=== PATIENT | female | born 1970 | race African-American/Black ===

== ENCOUNTER 2016-05-29 22:32 | Emergency (ER) | payer MEDICAID ==
[~2016-05-29] VITALS: Ht 162.6 cm; Wt 79.4 kg
[~2016-05-29 22:32] MED LIST: ALBUTEROL SULF8.5 GM INH; ATIVAN1 MG ORAL; AZITHROMYCIN250 MG ORAL; BENTYL10 MG ORAL; COLACE100 MG ORAL; GAS-X80 MG PO; KEPPRA500 MG ORAL; LIBRIUM10 MG ORAL; LORAZEPAM1 MG ORAL; NKM; NORCO 5-325 TA1 EACH ORAL; NORCO 5-325 TA1 EACH PO; ONDANSETRON ODT4 MG ORAL; ZOFRAN ODT4 MG ORAL; ZOFRAN4 M1 ORAL; seizure medication PO
[2016-05-29] MEDS ORDERED: Norco 10mg/325mg tab ORAL ONE (23:00)
--- NOTE | 2016-05-29 23:18 | Emergency Room Report ---
History of Present Illness General Chief Complaint: Lower Extremity Injury Source: Patient Present Illness HPI Patient presents with complaints of pain to her right foot Patient's of her foot against a wall earlier this morning Now the pain is 8/10 ongoing since then Pain is worse with ambulation More so to the lateral palmar aspect distally Denies any ankle pain denies any knee pain denies any other fall or trauma Allergies: Coded Allergies: ASPIRIN (Verified Allergy, Mild, HIVES, 06/18/10) Patient History Past Medical History: see triage record Pertinent Family History: none Now: No Reviewed Nursing Documentation: PMH: Agreed, PSxH: Agreed Nursing Documentation-PMH Past Medical History: No History, Except For Hx Cardiac Problems: Yes - VSD Hx Hypertension: No Hx Pacemaker: No Hx Asthma: No Hx COPD: No Hx Diabetes: No Hx Cancer: No Hx Gastrointestinal Problems: Yes - Ventral hernia Hx Neurological Problems: Yes Hx Cerebrovascular Accident: No Hx Seizures: Yes - last attack was 1 month ago Review of Systems All Other Systems: negative except mentioned in HPI Physical Exam Vital Signs Date Time Temp Pulse Resp B/P Pulse Ox O2 Delivery O2 Flow Rate FiO2 05/29/16 22:36 97.7 93 19 119/77 98 Room Air Sp02 EP Interpretation: reviewed, normal General Appearance: well appearing, no apparent distress Head: normocephalic, atraumatic Eyes: bilateral eye EOMI, bilateral eye PERRL ENT: hearing grossly normal, normal pharynx, TMs + canals normal, uvula midline Musculoskeletal: swelling - And erythema to the palmar aspect of the distal lateral tank tender to palpation, neurovascularly intact, other - Patient has tenderness on palpation of the distal metacarpal region on the palmar aspect no obvious open cuts or wounds Neurologic: oriented x3, responsive, studio artist III-XII nml as tested, sensory intact Psychiatric: mood/affect normal Skin: warm/dry, palpation normal, other - As noted above Lymphatic: normal inspection, no adenopathy Medical Decision Making Diagnostic Impression: Primary Impression: Injury of lower extremity Additional Impression: Foot contusion ER Course Patient's imaging study does not show any obvious acute pathology, there does appear to be some abnormality involving the distal metacarpal Further outpatient workup is warranted This is a preliminary x-ray reading Final reading will be done by radiology in the morning patient was notified about this and followup if warranted Here the patient was provided with a postop shoe for improved sensation along with a cane , Other X-Ray Diagnostic Results Other X-Ray Diagnostic Results : EP Interpretation: Yes Findings: no fractures, no dislocation, no soft tissue swelling, other - No obvious acute fracture distal metacarpal anomaly noted, Number of Views: 3 - right foot Last Vital Signs Date Time Temp Pulse Resp B/P Pulse Ox O2 Delivery O2 Flow Rate FiO2 05/29/16 22:36 97.7 93 19 119/77 98 Room Air Status: improved Disposition: HOME, SELF-CARE Condition: Improved Scripts Hydrocodone Bit/Acetaminophen 5-325* (NORCO 5-325*) 1 Each Tablet 1 TAB ORAL Q12HR Y for For Pain, #10 TAB 0 Refills Prov: PRESLEY MATHIS D.O. 05/29/16 Additional Instructions: Patient is provided with the discharge instructions notified to follow up with primary doctor in the next 2-3 days otherwise return to the er with any worsening symptoms. PRESLEY MATHIS D.O. May 29, 2016 23:18
[2016-05-29] MEDS ORDERED: NORCO 5-325 TA1 EACH ORAL (23:44)
[2016-05-30 00:03] VITALS: BP 105/72
[2016-05-30 00:04] VITALS: BP 105/72
--- NOTE | 2016-05-30 10:18 | Diagnostic Imaging Report ---
Indication: PAIN Technique: 3 views right foot Comparison: none Findings: No acute fractures. No dislocations. The joint spaces are preserved Impression: Negative
== END 2016-05-30 00:07 | disposition home or self-care (01) ==
LOC: EMR 23:05
DX: S90.31XA Contusion of right foot, initial encounter (principal); Z88.6 Allergy status to analgesic agent; W22.09XA Striking against other stationary object, initial encounter; Y92.9 Unspecified place or not applicable; Y99.8 Other external cause status
CPT/HCPCS: 99283

== ENCOUNTER 2019-02-17 19:19 | Emergency (ER) | payer MEDICAID ==
[~2019-02-17] VITALS: Ht 170.2 cm; Wt 83.0 kg
[2019-02-17 19:30] VITALS: BP 119/81
--- NOTE | 2019-02-17 19:30 | NUR ---
ED Nurse Note: Patient in obgyn complaining of pain to the right elbow and reduced range of movement. Swelling also noted to the hand which patient states has swollen during the day. Patient states she had banged her elbow and since then she has felty increasing pain and since then reduced movement of the right elbow. Patient tearful. Xray requested.
[2019-02-17] MEDS ORDERED: Ketorolac 30mg Inj IM ONE (19:45)
--- NOTE | 2019-02-17 20:24 | Emergency Room Report ---
History of Present Illness General Chief Complaint: Upper Extremity Injury Source: Patient Present Illness HPI 48-year-old female with no symptom past medical history here complaining of pain and swelling right elbow after hitting her right elbow to a metal pole yesterday. Patient rating pain 10 out of 10, reports increased pain with with occasional movement of the right elbow. Denies pain radiation, tingling and numbness. Has not taken medication for pain. Denies other injuries, chest pain , shortness of breath, palpitation, and other associated symptoms. Allergies: Coded Allergies: ASPIRIN (Verified Allergy, Mild, HIVES, 06/18/10) Patient History Past Medical History: see triage record Past Surgical History: unable to obtain Pertinent Family History: none Now: No Immunizations: UTD Reviewed Nursing Documentation: PMH: Agreed; PSxH: Agreed Nursing Documentation-PMH Hx Cardiac Problems: Yes - VSD Hx Hypertension: No Hx Pacemaker: No Hx Asthma: No Hx COPD: No Hx Diabetes: No Hx Cancer: No Hx Gastrointestinal Problems: Yes - Ventral hernia Hx Neurological Problems: Yes Hx Cerebrovascular Accident: No Hx Seizures: Yes - last attack was 1 month ago Review of Systems All Other Systems: negative except mentioned in HPI Physical Exam Vital Signs Date Time Temp Pulse Resp B/P (MAP) Pulse Ox O2 Delivery O2 Flow Rate FiO2 02/17/19 19:30 98.2 83 20 119/81 (94) 99 Room Air Sp02 EP Interpretation: reviewed, normal General Appearance: no apparent distress, alert, GCS 15, non-toxic Head: normocephalic, atraumatic Eyes: bilateral eye normal inspection, bilateral eye PERRL ENT: hearing grossly normal, normal pharynx, no angioedema, normal voice Neck: full range of motion, supple/symm/no masses Respiratory: chest non-tender, lungs clear, normal breath sounds, no rhonchi, no wheezing, speaking full sentences Cardiovascular #1: regular rate, rhythm, no edema, no murmur Cardiovascular #2: 2+ radial (R), 2+ radial (L) Gastrointestinal: normal bowel sounds, non tender, soft, non-distended, no guarding, no rebound Genitourinary: no CVA tenderness Neurologic: alert, oriented x3, responsive, motor strength/tone normal, sensory intact, speech normal Psychiatric: judgement/insight normal, memory normal, mood/affect normal, no suicidal/homicidal ideation Skin: no rash Lymphatic: no adenopathy Medical Decision Making PA Attestation All diagnoses and treatment plans were reviewed and discussed with my supervising physician Dr. Quesada Diagnostic Impression: Primary Impression: Elbow contusion ER Course 48-year-old female with no symptom past medical history here complaining of pain and swelling right elbow after hitting her right elbow to a metal pole yesterday. Patient rating pain 10 out of 10, reports increased pain with with occasional movement of the right elbow. Denies pain radiation, tingling and numbness. Has not taken medication for pain. Denies other injuries, chest pain , shortness of breath, palpitation, and other associated symptoms. Ddx considered but are not limited to: Elbow sprain versus strain versus contusion versus fracture Vital signs: are WNL, pt. is afebrile H&PE are most consistent with: Right elbow contusion ORDERS: Elbow x-ray, ibuprofen, lidocaine patch ED INTERVENTIONS: Toradol DISCHARGE: At this time pt. is stable for d/c to home. Will provide printed patient care instructions, and any necessary prescriptions. Care plan and follow up instructions have been discussed with the patient prior to discharge. Patient to follow-up with her primary care provider and possible referral to physical therapy . Return to emergency room if worsening symptoms. Other X-Ray Diagnostic Results Other X-Ray Diagnostic Results : X-Ray ordered: right elbow # of Views/Limited Vs Complete: 3 View Indication: Pain EP Interpretation: Yes PA Xray: Interpretation reviewed, by supervising MD, and agrees with findings. Interpretation: no dislocation, no soft tissue swelling, no fractures Impression: No acute disease Electronically Signed by: Case Ramsey PA-C Last Vital Signs Date Time Temp Pulse Resp B/P (MAP) Pulse Ox O2 Delivery O2 Flow Rate FiO2 02/17/19 19:30 98.2 83 20 119/81 (94) 99 Room Air Disposition: HOME, SELF-CARE Condition: Stable Scripts Lidocaine Patch* (Lidoderm Patch*) 1 Each Adh..patch 1 PATCH TOPIC DAILY, #7 PATCH 0 Refills Patch(es) may remain in place for up to 12 hours in any 24-hour period. Prov: Case Ratliff 02/17/19 Ibuprofen (Ibu) 800 Mg Tablet 800 MG PO TID, #30 TAB Prov: Case Ratliff 02/17/19 Patient Instructions: Elbow Contusion, [id number] Additional Instructions: Follow-up with primary care provider if worsening symptoms return to the emergency room. Case Ratliff Feb 17, 2019 20:24
--- NOTE | 2019-02-17 20:42 | Diagnostic Imaging Report ---
Indications:Pain, trauma Technique: Three or 4 views of the right elbow Comparison: None Findings: Exam is somewhat limited as patient was unable to bend elbow for lateral view. No definite joint effusion. No definite acute fractures. No dislocations. Joint spaces are preserved Impression:Somewhat limited exam. No acute bony trauma This agrees with the preliminary interpretation provided overnight by [facility].
[2019-02-17] MEDS ORDERED: IBU800 MG PO (20:46)
[2019-02-17] MEDS ORDERED: LIDODERM700 M1 TOPIC (20:46)
--- NOTE | 2019-02-17 20:55 | NUR ---
ED Nurse Note: Xray shows no fracture. Patient reports improved pain score and appears more comfortable. Patient states pain has reduced from 10/10 to 3-5 out of 10. Patient advises that she has a better range of movement since pain score improved.
--- NOTE | 2019-02-17 21:03 | NUR ---
ER DISCHARGE NOTE: Patient is cleared to be discharged per ERMD, pt is aox4, on room air. Pain score improved. pt was given dc and prescription instructions, pt was able to verbalize understanding, pt id band removed. pt is able to ambulate with steady gait. pt took all belongings.
[2019-02-17 21:05] VITALS: BP 119/81
== END 2019-02-17 21:03 | disposition home or self-care (01) ==
LOC: EMR 20:30
DX: S50.01XA Contusion of right elbow, initial encounter (principal); Z79.82 Long term (current) use of aspirin; Q21.0 Ventricular septal defect; W22.09XA Striking against other stationary object, initial encounter; Y92.9 Unspecified place or not applicable
CPT/HCPCS: 73080; 96372; J1885; Z7502; 99283